=== PATIENT | female | born 1960 | race Caucasian/White ===

== ENCOUNTER 2016-06-11 12:40 | Emergency (ER) | payer SELFPAY ==
[2016-06-11 12:51] VITALS: BP 129/77
--- NOTE | 2016-06-11 12:58 | ED ---
Influenza-Like Illness - HPI Summary HPI Summary: Pt here w/ bodyaches last night. Took ibuprofen and feels fine today. She is concerned about early sx of influenza as her has had dx of influenza B since 06/07 but sx started 06/02. Denies fever, chills, GASTELUM, ST, rhinorrhea, sneezing, coughing, N/V/D, rash. Overall feeling well - just wanted to get checked. - History of Current Complaint Chief Complaint: UCGeneralIllness Time Seen by Provider: 06/11/16 12:54 Hx Obtained From: Patient - Allergy/Home Medications Allergies/Adverse Reactions: Allergies Allergy/AdvReac Type Severity Reaction Status Date / Time Sulfa Antibiotics Allergy Rash Verified 06/11/16 12:51 Penicillins AdvReac Mild See Comment Verified 06/11/16 12:51 PMH/Surg Hx/FS Hx/Imm Hx Previously Healthy: Yes Endocrine/Hematology History: Reports: Hx Thyroid Disease - hypo Cardiovascular History: Reports: Hx Hypertension - Surgical History Surgery Procedure, Year, and Place: hernia x 2, tubal, tubal reversal and tubal again Infectious Disease History: No Infectious Disease History: Denies: Traveled Outside the [place] in Last 30 Days - Social History 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 Lives: At [facility] Alcohol Use: None Hx Substance Use: No Substance Use Type: Reports: None Hx Tobacco Use: No Smoking Status (MU): Never Smoked Tobacco Review of Systems Constitutional: Negative Eyes: Negative ENT: Negative Cardiovascular: Negative Respiratory: Negative Gastrointestinal: Negative Positive: no symptoms reported Positive: Arthralgia - see HPI, Myalgia Skin: Negative Neurological: Negative Psychological: Normal All Other Systems Reviewed And Are Negative: Yes Physical Exam Triage Information Reviewed: Yes Vital Signs On Initial Exam: Initial Vitals Temp Pulse Resp BP Pulse Ox 97.7 F 87 14 129/77 97 06/11/16 12:45 06/11/16 12:45 06/11/16 12:45 06/11/16 12:45 06/11/16 12:45 Vital Signs Reviewed: Yes Appearance: Positive: Well-Appearing, No Pain Distress, Well-Nourished Skin: Positive: Warm, Dry - no rash observed Head/Face: Positive: Normal Head/Face Inspection - sinuses NTTP Eyes: Positive: Normal, EOMI, Conjunctiva Clear ENT: Positive: Normal ENT inspection, Hearing grossly normal, Pharynx normal, TMs normal. Negative: Nasal congestion, Nasal drainage, Tonsillar swelling, Tonsillar exudate Neck: Positive: Supple, Nontender, No Lymphadenopathy Respiratory/Lung Sounds: Positive: Clear to Auscultation, Breath Sounds Present. Negative: Rales, Rhonchi, Wheezes Cardiovascular: Positive: Normal, RRR, S1, S2. Negative: Murmur, Rub Abdomen Description: Positive: Nontender, No Organomegaly, Soft Bowel Sounds: Positive: Present Musculoskeletal: Positive: Normal, Strength/ROM Intact Neurological: Positive: Normal, Sensory/Motor Intact, Alert, Oriented to Person Place, Time, CN Intact II-III Psychiatric: Positive: Normal Diagnostics - Vital Signs Vital Signs Temp Pulse Resp BP Pulse Ox 06/11/16 12:45 97.7 F 87 14 129/77 97 - Laboratory Lab Statement: Any lab studies that have been ordered have been reviewed, and results considered in the medical decision making process. Flu Symptom Course/Dx - Course Course Of Treatment: Pt presents w/ to get checked for influenza as she had body aches last night. Took ibupronfe last night and feels fine today. Her rapid influenza swab was neg. She declines prophylactic tx. During the course of her stay, her fiance became ill and she was quite anxious but agreed to complete her appt and will be d/c'd w/o medication. She will monitor herself for s/sx of influenza and will implement conservative care measures as discussed w/ she and her fiance. - Diagnoses Provider Diagnoses: Body aches Discharge - Discharge Plan Condition: Stable Disposition: HOME Patient Education Materials: Musculoskeletal Pain (ED) Referrals: Elizabeth Meredith [Primary Care Provider] - Additional Instructions: May take ibuprofen alternating with acetaminophen for aches/pains. Stay hydrated. Seek medical attention if you have fever, headache, vomiting, etc. *If you develop chest pain or trouble breathing, go to ED
== END 2016-06-11 14:09 | disposition home or self-care (01) ==
LOC: UCCORT 12:40
DX: M79.1 Myalgia (principal); Z88.0 Allergy status to penicillin; Z88.2 Allergy status to sulfonamides; E03.9 Hypothyroidism, unspecified; I10 Essential (primary) hypertension
CPT/HCPCS: 87502; 99211; G0463

== ENCOUNTER 2016-06-14 14:47 | Emergency (ER) | payer OTHER ==
--- NOTE | 2016-06-14 17:37 | UC ---
Throat Pain/Nasal Mukesh HPI - HPI Summary HPI Summary: compalint of nasal congestion and cough that started 4-5 days ago head feels congested bilateral ear pain for the last 2 days feels like her teeth and face are painful has felt feverish and chills denies sore throat has been taking mucinex and allergy medicaiton without much relief - History of Current Complaint Chief Complaint: UCGeneralIllness Stated Complaint: SINUS PRESSURE (SEEN WED) Time Seen by Provider: 06/14/16 17:27 Hx Obtained From: Patient - Allergies/Home Medications Allergies/Adverse Reactions: Allergies Allergy/AdvReac Type Severity Reaction Status Date / Time Sulfa Antibiotics Allergy Rash Verified 06/14/16 15:57 Penicillins AdvReac Mild See Comment Verified 06/14/16 15:57 Home Medications: Home Medications Flaxseed (Linseed) [Flax Seed Oil 1000 mg] 1 cap PO BID 06/14/16 [History Confirmed 06/14/16] LoraTADine TAB(NF) [Claritin 10 MG TAB(NF)] 10 mg PO DAILY 06/14/16 [History Confirmed 06/14/16] Metoprolol Succinate XL TAB* [Toprol XL TAB*] 25 mg PO DAILY 06/14/16 [History Confirmed 06/14/16] Valsartan TAB* [Diovan TAB*] 160 mg PO DAILY 06/14/16 [History Confirmed ] amLODIPine TAB* [Norvasc 5 mg TAB*] 5 mg PO DAILY 06/14/16 [History Confirmed ] PMH/Surg Hx/FS Hx/Imm Hx Previously Healthy: Yes Endocrine History Of: Reports: Thyroid Disease - hypo Cardiovascular History Of: Reports: Hypertension - Surgical History Surgical History: Yes Surgery Procedure, Year, and Place: hernia x 2, tubal, tubal reversal and tubal again, lap arlene 01/2016 - Family History Known Family History: Negative: Cardiac Disease, Hypertension, Diabetes - Social History Occupation: Employed Full-time Lives: With Family Alcohol Use: None Substance Use Type: None Smoking Status (MU): Never Smoked Tobacco Review of Systems Constitutional: Fever Skin: Negative Eyes: Negative ENT: Ear Ache, Nasal Discharge Respiratory: Cough Cardiovascular: Negative Gastrointestinal: Negative Genitourinary: Negative Motor: Negative Neurovascular: Negative Musculoskeletal: Negative Neurological: Headache Psychological: Negative All Other Systems Reviewed And Are Negative: Yes Physical Exam Triage Information Reviewed: Yes Appearance: No Pain Distress, Well-Nourished Vital Signs: Initial Vital Signs Temp 99.9 F 06/14/16 16:00 Pulse 85 06/14/16 16:00 Resp 16 06/14/16 16:00 BP 135/87 06/14/16 16:00 Pulse Ox 98 06/14/16 16:00 Vital Signs Reviewed: Yes Eyes: Positive: Conjunctiva Clear ENT: Positive: Pharyngeal erythema, Nasal congestion, Nasal drainage, TM bulging - bilaterally, TM red, Other: - no sinus tenderness. Negative: Tonsillar swelling, Tonsillar exudate Neck: Positive: No Lymphadenopathy Respiratory: Positive: Lungs clear, Normal breath sounds, No respiratory distress, No accessory muscle use Cardiovascular: Positive: RRR, No Murmur, Pulses Normal Abdomen Description: Positive: Nontender, Soft Bowel Sounds: Positive: Present Musculoskeletal: Positive: No Edema Neurological Exam: Normal Psychological Exam: Normal Skin Exam: Normal Throat Pain/Nasal Course/Dx - Differential Dx/Diagnosis Differential Diagnosis/HQI/PQRI: Otitis Media, Sinusitis, URI Provider Diagnoses: otitis media, URI Discharge - Discharge Plan Condition: Stable Disposition: HOME Prescriptions: Benzonatate CAP* [Tessalon 100 MG CAP*] 100 mg PO TID #30 cap Clarithromycin TAB* [Biaxin 500 MG TAB*] 500 mg PO BID #14 tab Patient Education Materials: Otitis Media (ED), Upper Respiratory Infection (ED ) Referrals: Elizabeth Meredith [Primary Care Provider] - Additional Instructions: Please take antibiotic as directed Increase fluids and rest Take acetaminophen or ibuprofen for fever or pain Please review your discharge instructions. If your symptoms do not improve please call your primary care provider or return to urgent care. Your blood pressure is pre-hypertensive reading. Please contact your primary care provider within 1 day -4 weeks for further evaluation
[2016-06-14 17:50] VITALS: BP 142/75
== END 2016-06-14 17:52 | disposition home or self-care (01) ==
LOC: UCCORT 14:47
DX: J06.9 Acute upper respiratory infection, unspecified (principal); H66.93 Otitis media, unspecified, bilateral; Z88.0 Allergy status to penicillin; E03.9 Hypothyroidism, unspecified; I10 Essential (primary) hypertension
CPT/HCPCS: 99212; G0463

== ENCOUNTER 2016-07-08 12:43 | Emergency (ER) | payer MEDICAID, OTHER ==
[2016-07-08 13:49] VITALS: BP 126/66
--- NOTE | 2016-07-08 13:56 | UC ---
Ear Complaint HPI - HPI Summary HPI Summary: RIGHT EAR FEELS PLUGGED X 7 DAYS MILD EAR PAIN , NO NASAL CONGESTION , NO COUGH, NO FEVER RECENT HX OF EAR INFECTION OF THE RIGHT TM - History of Current Complaint Chief Complaint: UCEar Stated Complaint: RIGHT EAR CLOGGED,VERTIGO Time Seen by Provider: 07/08/16 13:44 Hx Obtained From: Patient Onset/Duration: Gradual Onset, Lasting Days - 7, Still Present Severity Initially: Moderate Severity Currently: Moderate Aggravating Factors: Nothing Alleviating Factors: Nothing Associated Signs/Symptoms: Negative: Discharge, Hearing Loss, Foreign Body Sensation, Trauma to Ear, Swelling @, URI Symptoms - Allergies/Home Medications Allergies/Adverse Reactions: Allergies Allergy/AdvReac Type Severity Reaction Status Date / Time Sulfa Antibiotics Allergy Rash Verified 07/08/16 13:37 Penicillins AdvReac Mild See Comment Verified 07/08/16 13:37 PMH/Surg Hx/FS Hx/Imm Hx Previously Healthy: Yes - Surgical History Surgical History: Yes Surgery Procedure, Year, and Place: hernia x 2, tubal, tubal reversal and tubal again, lap arlene 01/2016 - Family History Known Family History: Negative: Cardiac Disease, Hypertension, Diabetes - Social History Alcohol Use: None Substance Use Type: None Smoking Status (MU): Never Smoked Tobacco - Immunization History Most Recent Influenza Vaccination: NONE Most Recent Tetanus Shot: UTD Most Recent Pneumonia Vaccination: N/A Review of Systems Constitutional: Negative Skin: Negative Eyes: Negative ENT: Ear Ache Respiratory: Negative Cardiovascular: Negative All Other Systems Reviewed And Are Negative: Yes Physical Exam Triage Information Reviewed: Yes Appearance: Well-Appearing, No Pain Distress, Well-Nourished Vital Signs: Initial Vital Signs Temp 97.5 F 07/08/16 13:40 Pulse 82 07/08/16 13:40 Resp 18 07/08/16 13:40 BP 126/66 07/08/16 13:40 Pulse Ox 97 07/08/16 13:40 Vital Signs Reviewed: Yes Eyes: Positive: Conjunctiva Clear ENT: Positive: Normal ENT inspection, Hearing grossly normal, Pharynx normal, TMs normal. Negative: TM bulging, TM dull, TM red Neck: Positive: Supple, Nontender, No Lymphadenopathy Respiratory: Positive: Chest non-tender, Lungs clear, Normal breath sounds Cardiovascular: Positive: RRR, No Murmur, Pulses Normal Skin Exam: Normal Ear Complaint Course/Dx - Differential Dx/Diagnosis Provider Diagnoses: EUSTACHIAN TUBE DYSFUNCTION Discharge - Discharge Plan Condition: Stable Disposition: HOME Patient Education Materials: Earache (ED) Referrals: Elizabeth Meredith [Primary Care Provider] - 7 Days Additional Instructions: EUSTACHIAN TUBE DYSFUNCTION CONT. WITH ANTIHISTAMINE , FLONASE DAILY
== END 2016-07-08 14:05 | disposition home or self-care (01) ==
LOC: UCCORT 12:43
DX: H69.90 Unspecified Eustachian tube disorder, unspecified ear (principal)
CPT/HCPCS: 99211; G0463

== ENCOUNTER 2017-04-10 15:31 | Emergency (ER) | payer MEDICAID, OTHER ==
[2017-04-10 15:54] VITALS: BP 122/66
--- NOTE | 2017-04-10 16:20 | UC ---
Ear Complaint HPI - HPI Summary HPI Summary: 56 yo female with URI symptoms x 3 days right ear pain decreased hearing - History of Current Complaint Chief Complaint: UCEar Stated Complaint: RIGHT EAR COMPLAINT, CONGESTION Time Seen by Provider: 04/10/17 16:06 Hx Obtained From: Patient Onset/Duration: Gradual Onset Severity Initially: Moderate Severity Currently: Moderate Pain Intensity: 4 Pain Scale Used: 0-10 Numeric Associated Signs/Symptoms: Positive: Hearing Loss, URI Symptoms - Allergies/Home Medications Allergies/Adverse Reactions: Allergies Allergy/AdvReac Type Severity Reaction Status Date / Time Penicillins Allergy Palpitation Verified 04/10/17 15:48 s Sulfa (Sulfonamide Allergy Rash Verified 04/10/17 15:48 Antibiotics) Home Medications: Home Medications Aspirin Low Dose CHEW TAB* [Aspirin Low Dose TAB*] 81 mg PO DAILY 04/10/17 [ History Confirmed 04/10/17] Gabapentin CAP(*) [Neurontin 100 mg CAP(*)] 100 mg PO BID 04/10/17 [History Confirmed 04/10/17] PMH/Surg Hx/FS Hx/Imm Hx Previously Healthy: Yes - Surgical History Surgical History: Yes Surgery Procedure, Year, and Place: hernia x 2, tubal, tubal reversal and tubal again, lap arlene 01/2016 - Family History Known Family History: Negative: Cardiac Disease, Hypertension, Diabetes - Social History Alcohol Use: None Substance Use Type: None Smoking Status (MU): Never Smoked Tobacco - Immunization History Most Recent Influenza Vaccination: NONE Most Recent Tetanus Shot: UTD Most Recent Pneumonia Vaccination: N/A Review of Systems Constitutional: Negative Skin: Negative Eyes: Negative ENT: Ear Ache - right, Nasal Discharge, Sinus Congestion Respiratory: Negative Cardiovascular: Negative Gastrointestinal: Negative Genitourinary: Negative Motor: Negative Neurovascular: Negative Musculoskeletal: Negative Neurological: Negative Psychological: Negative Is Patient Immunocompromised?: No All Other Systems Reviewed And Are Negative: Yes Physical Exam Triage Information Reviewed: Yes Appearance: Well-Appearing, No Pain Distress, Well-Nourished Vital Signs: Initial Vital Signs Temp 98.4 F 04/10/17 15:48 Pulse 91 04/10/17 15:48 Resp 16 04/10/17 15:48 BP 122/66 04/10/17 15:48 Pulse Ox 99 04/10/17 15:48 Vital Signs Reviewed: Yes Eyes: Positive: Conjunctiva Clear ENT: Positive: Pharynx normal, Nasal congestion. Negative: Hearing grossly normal, TMs normal - right TM retracted Neck: Positive: Supple, Nontender, No Lymphadenopathy Respiratory: Positive: Lungs clear, Normal breath sounds, No respiratory distress Cardiovascular: Positive: RRR, No Murmur Musculoskeletal: Positive: ROM Intact, No Edema Neurological: Positive: Alert Psychological Exam: Normal Skin Exam: Normal Ear Complaint Course/Dx - Differential Dx/Diagnosis Provider Diagnoses: right serous otitis media Discharge - Discharge Plan Condition: Stable Disposition: HOME Prescriptions: Azithromycin TAB* [Zithromax TAB*] 250 mg PO DAILY #6 tab Patient Education Materials: Serous Otitis Media (ED) Referrals: Non Staff,Doctor [Primary Care Provider] - If Needed Additional Instructions: saline nasal spray
== END 2017-04-10 16:21 | disposition home or self-care (01) ==
LOC: UCCORT 15:31
DX: H65.91 Unspecified nonsuppurative otitis media, right ear (principal); Z88.1 Allergy status to other antibiotic agents; Z88.0 Allergy status to penicillin
CPT/HCPCS: 99212; G0463

== ENCOUNTER 2018-02-28 13:45 | Emergency (ER) | payer MEDICAID, OTHER ==
[2018-02-28 14:34] VITALS: BP 145/72
--- NOTE | 2018-02-28 14:42 | UC ---
Complaint Female HPI - HPI Summary HPI Summary: 57-year-old female presents with onset of dysuria, frequency, and urgency today. Denies fever, chills, abdominal pain, back or flank pain, nausea, vomiting, diarrhea, hematuria, vaginal discharge, or abnormal vaginal bleeding. Patient does have history of uterine prolapse and uses pessary device but does not use any estrogen cream. - History Of Current Complaint Stated Complaint: URINARY Time Seen by Provider: 02/28/18 14:22 Hx Obtained From: Patient Pain Intensity: 0 - Allergies/Home Medications Allergies/Adverse Reactions: Allergies Allergy/AdvReac Type Severity Reaction Status Date / Time Penicillins Allergy Palpitation Verified 02/28/18 14:31 s Sulfa (Sulfonamide Allergy Rash Verified 02/28/18 14:31 Antibiotics) Home Medications: Home Medications Losartan TAB* [Cozaar TAB*] 25 mg PO DAILY 02/28/18 [History Confirmed 02/28/18] busPIRone TAB* [Buspar TAB*] 5 mg PO BID 02/28/18 [History Confirmed 02/28/18] PMH/Surg Hx/FS Hx/Imm Hx Endocrine History: Hypothyroidism Cardiovascular History: Hypertension Psychological History: Anxiety, Depression - Surgical History Surgical History: Yes Surgery Procedure, Year, and Place: hernia x 2, tubal, tubal reversal and tubal again, lap arlene 01/2016 - Family History Known Family History: Positive: Non-Contributory - Social History Occupation: Employed Full-time Lives: With Family Alcohol Use: None Substance Use Type: None Smoking Status (MU): Never Smoked Tobacco - Immunization History Most Recent Influenza Vaccination: NONE Most Recent Tetanus Shot: UTD Most Recent Pneumonia Vaccination: N/A Review of Systems All Other Systems Reviewed And Are Negative: Yes Constitutional: Negative: Fever, Chills Skin: Negative: Rash Respiratory: Negative: Shortness Of Breath, Cough Cardiovascular: Negative: Palpitations, Chest Pain Gastrointestinal: Negative: Abdominal Pain, Vomiting, Diarrhea, Nausea Genitourinary: Positive: Dysuria, Frequency, Urgency. Negative: Hematuria, Vaginal/Penile Discharge, Ulceration/Lesion, Abnormal Bleeding Musculoskeletal: Positive: Negative Neurological: Positive: Negative Is Patient Immunocompromised?: No Physical Exam - Summary Physical Exam Summary: GENERAL APPEARANCE: Well developed, well nourished, alert and cooperative, and appears to be in no acute distress. CARDIAC: Normal S1 and S2. No S3, S4 or murmurs. Rhythm is regular. There is no peripheral edema, cyanosis or pallor. Extremities are warm and well perfused. Capillary refill is less than 2 seconds. LUNGS: Clear to auscultation without rales, rhonchi, wheezing or diminished breath sounds. ABDOMEN: Positive bowel sounds. Soft, nondistended, nontender. No guarding or rebound. No masses or hepatosplenomegally. No CVA tenderness. MUSKULOSKELETAL: ROM intact to all extremities. No joint erythema or tenderness. Normal muscular development. Normal gait. SKIN: Skin normal color, texture and turgor with no lesions or eruptions. Triage Information Reviewed: Yes Vital Signs: Initial Vital Signs Temp 98.4 F 02/28/18 14:30 Pulse 106 02/28/18 14:30 Resp 19 02/28/18 14:30 BP 145/72 02/28/18 14:30 Pulse Ox 97 02/28/18 14:30 Vital Signs Reviewed: Yes Diagnostics - Laboratory Diagnostic Studies Completed/Ordered: POC UA 1+ blood. Urine culture pending. Complaint Female Dx - Course Course Of Treatment: 57-year-old female presents with onset of dysuria, frequency, and urgency today. Denies fever, chills, abdominal pain, back or flank pain, nausea, vomiting, diarrhea, hematuria, vaginal discharge, or abnormal vaginal bleeding. Patient does have history of uterine prolapse and uses pessary device but does not use any estrogen cream. Afebrile. Vital signs stable. Exam was unremarkable. [id number] urinalysis showed 1+ blood but was otherwise normal. We will send urine for culture. No clinical evidence of infection discussed with patient that symptoms may be related to her prolapse and/or from some vaginal atrophy especially considering that her OB /SOLID WASTE TRUCK DRIVER had recommended she use an estrogen cream however the patient has avoided this out of concerns for the relationship between estrogen and cancer. Patient has an appointments with her RAIL FLAW DETECTOR OPERATOR scheduled tomorrow encouraged her to discuss the estrogen cream use with her again. Did discuss with the patient that she should have her urine rechecked to see if there is any further blood present as this may need further workup. I'm recommending symptomatic treatment with 2 day course of Pyridium for her dysuria pending the results of the urine culture. She is to follow-up with her primary care provider in 5 days if symptoms persist. Warning symptoms were discussed with the patient. She verbalizes understanding and agrees with plan of care. - Differential Dx/Diagnosis Differential Diagnosis/HQI/PQRI: Renal Colic, Ureteral Stone, Urinary Tract Infection Provider Diagnosis: Dysuria, Microscopic hematuria Discharge - Sign-Out/Discharge Documenting (check all that apply): Patient Departure All imaging exams completed and their final reports reviewed: No Studies - Discharge Plan Condition: Stable Disposition: HOME Prescriptions: Phenazopyridine TAB* [Pyridium 100 mg TAB*] 100 mg PO TID #6 tab Patient Education Materials: Dysuria (ED) Referrals: Elizabeth Meredith [Primary Care Provider] - 5 Days (If no improvement in symptoms) Additional Instructions: Your urine test in the clinic today showed a little blood but no evidence of an infection. We will send the urine for culture to see if any bacteria grow out. We will contact you if there is any evidence of an infection and prescribe you an appropriate antibiotic. Start Pyridium 1 tab every 8 hours for the next 2 days to help with the discomfort. This medication will turn your urine an orange color. Keep your appointment with your RAIL FLAW DETECTOR OPERATOR tomorrow to have your pessary checked. You may want to discuss starting a topical estragen cream with her again. Follow up with your primary care provider in 5 days if symptoms persist. Seek immediate medical attention in the emergency room if you develop fever greater than 100.5 F, have severe abdominal pain, persistent vomiting, or any worsening of symptoms. - Billing Disposition and Condition Condition: STABLE Disposition: Home
--- NOTE | 2018-03-03 07:16 | UC ---
- Progress Note Progress Note: urine culture, no growth final no change aminata 03/03/18 Course/Dx - Diagnoses Provider Diagnoses: Dysuria, Microscopic hematuria Discharge - Sign-Out/Discharge Documenting (check all that apply): Post-Discharge Follow Up All imaging exams completed and their final reports reviewed: No Studies - Discharge Plan Condition: Stable Disposition: HOME Prescriptions: Phenazopyridine TAB* [Pyridium 100 mg TAB*] 100 mg PO TID #6 tab Patient Education Materials: Dysuria (ED) Referrals: Elizabeth Meredith [Primary Care Provider] - 5 Days (If no improvement in symptoms) Additional Instructions: Your urine test in the clinic today showed a little blood but no evidence of an infection. We will send the urine for culture to see if any bacteria grow out. We will contact you if there is any evidence of an infection and prescribe you an appropriate antibiotic. Start Pyridium 1 tab every 8 hours for the next 2 days to help with the discomfort. This medication will turn your urine an orange color. Keep your appointment with your COMPOSITE BOND WORKER tomorrow to have your pessary checked. You may want to discuss starting a topical estragen cream with her again. Follow up with your primary care provider in 5 days if symptoms persist. Seek immediate medical attention in the emergency room if you develop fever greater than 100.5 F, have severe abdominal pain, persistent vomiting, or any worsening of symptoms. - Billing Disposition and Condition Condition: STABLE Disposition: Home
== END 2018-02-28 15:05 | disposition home or self-care (01) ==
LOC: UCCORT 13:45
DX: R30.0 Dysuria (principal); R31.29 Other microscopic hematuria; R35.0 Frequency of micturition; R39.15 Urgency of urination; N81.4 Uterovaginal prolapse, unspecified; I10 Essential (primary) hypertension; F41.9 Anxiety disorder, unspecified; Z96.0 Presence of urogenital implants; Z88.0 Allergy status to penicillin; Z88.2 Allergy status to sulfonamides; Z98.890 Other specified postprocedural states; Z79.899 Other long term (current) drug therapy
CPT/HCPCS: 81003; 87086; 99212; G0463